=== PATIENT | female | born 1985 | race American Indian/Alaskan Native ===

== ENCOUNTER 2016-12-25 12:41 | Emergency (ER) | payer OTHER ==
[~2016-12-25] VITALS: Ht 172.7 cm; Wt 86.2 kg
[~2016-12-25 12:41] MED LIST: ABILIFY20 MG ORAL; AMOXICILLIN500 MG ORAL; ATENOLOL50 MG ORAL; ATIVAN1 MG ORAL; BENADRYL25 MG ORAL; CLOZARIL100 MG ORAL; IBUPROFEN600 MG ORAL; KENALOG 0.5% CR15 GM TP; KLONOPIN1 MG ORAL; NEURONTIN100 MG ORAL; NORCO 5-325 TA1 EACH ORAL
[2016-12-25] MEDS ORDERED: GABAPENTIN100 MG ORAL (12:57)
[2016-12-25 13:02] VITALS: BP 108/73
[2016-12-25] MEDS ORDERED: KEFLEX500 MG ORAL (13:15)
--- NOTE | 2016-12-25 13:17 | Emergency Room Report ---
History of Present Illness General Chief Complaint: General Complaint Source: Patient Present Illness HPI 31 yo F hx of psych p/w L nasal redness/boil. states yesterday noticed small bump by L nare, popped it, slight purulent drainage came out. states this am began to scab over. denies fevers or chills, but states since yesterday not feeling well. +smokes however denies snorting any drugs. no epistaxis. denies any abscesses in the past. no DM. Allergies: Coded Allergies: FLUPHENAZINE (Verified Allergy, Unknown, 12/25/16) HALOPERIDOL (Unverified Adverse Reaction, Intermediate, 03/13/14) Patient History Last Menstrual Period: Five days ago Now: No Nursing Documentation-PMH History Of Psychiatric Problem: Yes - Schizophrenia Review of Systems All Other Systems: negative except mentioned in HPI Physical Exam Vital Signs Date Time Temp Pulse Resp B/P Pulse Ox O2 Delivery O2 Flow Rate FiO2 12/25/16 12:47 98.4 84 16 108/73 98 Room Air Sp02 EP Interpretation: normal General Appearance: normal inspection, well appearing, no apparent distress, alert, GCS 15, non-toxic Head: normocephalic, atraumatic Eyes: bilateral eye EOMI, bilateral eye PERRL, bilateral eye normal inspection ENT: normal voice, moist mucus membranes, other - skin adjacent to L nare with slight scabbing, slight redness, no area of fluctuance, no purulent drainage. TTP. redness ~2x2cm only. no nasal FB Neck: normal inspection, full range of motion, supple, no bony tend Respiratory: normal inspection, lungs clear, normal breath sounds, no respiratory distress, no retraction, no wheezing, speaking full sentences, chest symmetrical Cardiovascular #1: normal inspection, regular rate, rhythm, no edema, normal capillary refill Gastrointestinal: normal inspection, non tender, soft, non-distended, no guarding Musculoskeletal: normal inspection, back normal, normal range of motion, non- tender Neurologic: normal inspection, alert, oriented x3, responsive, system integration engineer III-XII nml as tested, motor strength/tone normal, sensory intact, normal gait, speech normal Medical Decision Making Diagnostic Impression: Primary Impression: Cellulitis of external nose ER Course 31 yo F w/ 1 day of redness by L nare cellulitis no abscess palpated/visualized keflex, pmd fu, pt has appt on jan 01. strict return prec discussed. Last Vital Signs Date Time Temp Pulse Resp B/P Pulse Ox O2 Delivery O2 Flow Rate FiO2 12/25/16 13:02 98.4 75 16 108/73 98 Room Air Disposition: HOME, SELF-CARE Condition: Improved Scripts Cephalexin* (KEFLEX*) 500 Mg Capsule 500 MG ORAL Q6H for 7 Days, #28 CAP 0 Refills Prov: Francisco Barragan M.D. 12/25/16 Patient Instructions: Cellulitis Francisco Barragan M.D. Dec 25, 2016 13:17
[2016-12-25] MEDS ORDERED: IBUPROFEN600 MG ORAL (13:25)
[2016-12-25 13:26] VITALS: BP 108/73
== END 2016-12-25 13:34 | disposition home or self-care (01) ==
LOC: EMR 13:16
DX: J34.0 Abscess, furuncle and carbuncle of nose (principal)
CPT/HCPCS: 99283

== ENCOUNTER 2017-03-02 18:41 | Emergency (ER) | payer MEDICAID, OTHER ==
[~2017-03-02] VITALS: Ht 172.7 cm; Wt 89.8 kg
[~2017-03-02 18:41] MED LIST changes: +GABAPENTIN100 MG ORAL; +KEFLEX500 MG ORAL
[2017-03-02 19:02] VITALS: BP 106/68
[2017-03-02] MEDS ORDERED: AMOXICILLIN500 MG ORAL (19:27)
--- NOTE | 2017-03-02 19:28 | Emergency Room Report ---
History of Present Illness General Chief Complaint: Earache Source: Patient Present Illness HPI Patient is a 32 -year-old female presents with complaints of right ear pain that began 3 days ago. She states the pain is 7/10 in severity and she hasn't taken her medication for it. She denies any fever, chills, cough, runny or associated symptoms. She denies changes in hearing. Allergies: Coded Allergies: FLUPHENAZINE (Verified Allergy, Unknown, 12/25/16) HALOPERIDOL (Unverified Adverse Reaction, Intermediate, 03/13/14) Patient History Last Menstrual Period: 01/2017 Reviewed Nursing Documentation: PMH: Agreed, PSxH: Agreed Nursing Documentation-PMH Past Medical History: No History, Except For History Of Psychiatric Problem: Yes - Schizophrenia Review of Systems ENT: Reports: ear pain - right All Other Systems: negative except mentioned in HPI Physical Exam Vital Signs Date Time Temp Pulse Resp B/P (MAP) Pulse Ox O2 Delivery O2 Flow Rate FiO2 03/02/17 18:51 98.8 89 16 106/68 97 Room Air Sp02 EP Interpretation: reviewed, normal General Appearance: no apparent distress, alert, GCS 15, non-toxic Head: normocephalic, atraumatic Eyes: bilateral eye normal inspection, bilateral eye PERRL ENT: hearing grossly normal, normal pharynx, no angioedema, normal voice, other - right TM is erythematous and bulging, no TTP over the mastoid process bilaterally Neck: full range of motion, supple/symm/no masses Respiratory: chest non-tender, lungs clear, normal breath sounds, speaking full sentences Cardiovascular #1: regular rate, rhythm, no edema Cardiovascular #2: 2+ carotid (R), 2+ carotid (L), 2+ radial (R), 2+ radial (L) , 2+ dorsalis pedis (R), 2+ dorsalis pedis (L) Gastrointestinal: normal bowel sounds, non tender, soft, non-distended, no guarding, no rebound Rectal: deferred Genitourinary: normal inspection, no CVA tenderness Musculoskeletal: back normal, gait/station normal, normal range of motion, non- tender, calf tenderness Neurologic: alert, oriented x3, responsive, motor strength/tone normal, sensory intact, speech normal Psychiatric: judgement/insight normal, memory normal, mood/affect normal, no suicidal/homicidal ideation Reflexes: 3+ bicep (R), 3+ bicep (L), 3+ tricep (R), 3+ tricep (L), 3+ knee (R) , 3+ knee (L) Skin: normal color, no rash, warm/dry, well hydrated Lymphatic: no adenopathy Medical Decision Making PA Attestation SUPERVISING PHYSICIAN IS DR. DOMÍNGUEZ Diagnostic Impression: Primary Impression: Otitis media of right ear ER Course Findings consistent with otitis media of the right ear.patient is discharged home with amoxicillin. Pt is educated on symptomatic relief. Last Vital Signs Date Time Temp Pulse Resp B/P (MAP) Pulse Ox O2 Delivery O2 Flow Rate FiO2 03/02/17 19:02 98.8 16 106/68 97 Room Air 03/02/17 18:51 89 Status: improved Disposition: HOME, SELF-CARE Condition: Stable Scripts Amoxicillin* (AMOXIL*) 500 Mg Capsule 500 MG ORAL EVERY 8 HOURS for 10 Days, #40 CAP Prov: Stacey Duong 03/02/17 Patient Instructions: Otitis Media, Adult, [id number] Stacey Duong Mar 02, 2017 19:28
[2017-03-02 19:32] VITALS: BP 106/68
== END 2017-03-02 19:32 | disposition home or self-care (01) ==
LOC: EMR 19:06
DX: H66.91 Otitis media, unspecified, right ear (principal); F20.9 Schizophrenia, unspecified; Z88.8 Allergy status to other drugs, medicaments and biological substances
CPT/HCPCS: 99283

== ENCOUNTER 2017-09-20 13:45 | Emergency (ER) | payer MEDICAID ==
[~2017-09-20] VITALS: Ht 172.7 cm; Wt 81.6 kg
[2017-09-20 14:05] VITALS: BP 106/73
--- NOTE | 2017-09-20 14:13 | Emergency Room Report ---
History of Present Illness General Chief Complaint: Upper Respiratory Illness Source: Patient Present Illness [facility] 32-year-old female patient presents to ER complaining of cough 3 days. Patient reports that she has had green sputum in her cough. Patient denies history of asthma. Patient denies history of cardiovascular disease, PE, DVT. Patient reports no chest pain or shortness of breath during this time. Patient reports no fever. Patient also complains of sore throat during this time. Patient denies vomiting. Patient reports history of schizophrenia, states that she takes Klonopin. Patient denies suicidal or homicidal ideation. denies hemoptysis. Allergies: Coded Allergies: FLUPHENAZINE (Verified Allergy, Unknown, 12/25/16) HALOPERIDOL (Unverified Adverse Reaction, Intermediate, 03/13/14) Patient History Past Medical History: see triage record Last Menstrual Period: 09/04 Reviewed Nursing Documentation: PMH: Agreed; PSxH: Agreed Nursing Documentation-PM Past Medical History: No History, Except For History Of Psychiatric Problem: Yes - Schizophrenia Review of Systems All Other Systems: negative except mentioned in HPI Physical Exam Vital Signs Date Time Temp Pulse Resp B/P (MAP) Pulse Ox O2 Delivery O2 Flow Rate FiO2 09/20/17 13:58 98.2 92 16 106/73 95 Room Air 98.2 Sp02 EP Interpretation: reviewed, normal General Appearance: well appearing, no apparent distress, alert, GCS 15, non- toxic Head: normocephalic, atraumatic Eyes: bilateral eye normal inspection, bilateral eye PERRL ENT: hearing grossly normal, normal pharynx, no angioedema, normal voice, TMs + canals normal, uvula midline, moist mucus membranes, other - No tonsillar swelling, no tonsillar exudate, no pharyngeal erythema Neck: full range of motion Respiratory: lungs clear, normal breath sounds, no rhonchi, no respiratory distress, no accessory muscle use, no wheezing, speaking full sentences Cardiovascular #1: regular rate, rhythm, no edema Musculoskeletal: back normal, digits/nails normal, gait/station normal, normal range of motion, non-tender, no calf tenderness, Jaki's Sign negative Neurologic: alert, oriented x3, responsive, motor strength/tone normal, sensory intact Psychiatric: mood/affect normal Skin: no rash Lymphatic: no adenopathy Medical Decision Making PA Attestation Dr. Blanchard is my supervising Physician whom patient management has been discussed with. Diagnostic Impression: Primary Impression: Cough ER Course Pt presents to ED c/o cough. DDX considered but are not limited to influenza, viral URI, pneumonia, strep throat, rhinitis, sinusitis, otitis media. Low suspicion for PE per Well's criteria. Low suspicion for pneumonia, will order CXR to rule out underlying pathology. VITAL SIGNS are WNL, patient is afebrile Ordered CXR and viscous lidocaine. ER COURSE: PE Lungs clear to auscultation, no wheezes, rhonci or rales. No tonsillar exudates, no pharyngeal erythema, no uvular deviation, no stridor, no trismus. Low suspicion for peritonsillar abscess. Informed patient sore throat likely secondary to cough. Patient states "do not want to wait for x-ray". Patient eloped. - Please note that this Emergency Department Report was dictated using [employer] artist technology software, occasionally this can lead to erroneous entry secondary to interpretation by the dictation equipment. Last Vital Signs Date Time Temp Pulse Resp B/P (MAP) Pulse Ox O2 Delivery O2 Flow Rate FiO2 09/20/17 13:58 98.2 92 16 106/73 95 Room Air 98.2 Disposition: ELOPED Condition: Stable Patient Instructions: Upper Respiratory Infection, Adult Additional Instructions: Followup with primary care provider in 3 -5 days. Take medications as directed. Patient questions asked and answered. ER precautions given, patient instructed to return to ER immediately for any new or worsening of symptoms. Thanh Shaw September 20, 2017 14:13
[2017-09-20] MEDS ORDERED: Acetaminophen 500mg (ES) tab ORAL ONE (14:15)
[2017-09-20] MEDS ORDERED: Lidocaine 2% Visc 15ml soln ORAL ONE (14:15)
[2017-09-20 14:38] VITALS: BP 106/73
== END 2017-09-20 14:40 | disposition left against medical advice (07) ==
LOC: EMR 14:39
DX: R05 Cough (principal); F20.9 Schizophrenia, unspecified; Z88.8 Allergy status to other drugs, medicaments and biological substances
CPT/HCPCS: 99283

== ENCOUNTER 2017-11-18 19:18 | Emergency (ER) | payer MEDICAID ==
[~2017-11-18] VITALS: Ht 172.7 cm; Wt 90.7 kg
[2017-11-18] MEDS ORDERED: BETAMETHASONE D15 GM TP (19:42)
[2017-11-18] MEDS ORDERED: KLONOPIN1 MG ORAL (19:42)
--- NOTE | 2017-11-18 20:39 | Emergency Room Report ---
History of Present Illness General Chief Complaint: Skin Rash/Abscess Source: Patient Present Illness HPI 32yo F with h/o psoriasis, schizophrenia, anxiety/depression p/w b/l foot redness, L >R, with swelling as well. She feels the L is getting worse, but denies calf swelling or pain, cough, hemoptysis, recent travel, ocp use. Allergies: Coded Allergies: FLUPHENAZINE (Verified Allergy, Unknown, 11/18/17) HALOPERIDOL (Unverified Adverse Reaction, Intermediate, 11/18/17) Patient History Past Medical History: see triage record Last Menstrual Period: 10/2017 Now: No Reviewed Nursing Documentation: PMH: Agreed; PSxH: Agreed Nursing Documentation-PMH History Of Psychiatric Problem: Yes - paranoid sharri, depression, anxiety Review of Systems All Other Systems: negative except mentioned in HPI Physical Exam Vital Signs Date Time Temp Pulse Resp B/P (MAP) Pulse Ox O2 Delivery O2 Flow Rate FiO2 11/18/17 19:33 98.6 101 16 119/76 96 Room Air 98.6 Sp02 EP Interpretation: reviewed, normal General Appearance: no apparent distress, alert, non-toxic Head: normocephalic Eyes: bilateral eye normal inspection, bilateral eye PERRL, bilateral eye EOMI ENT: normal ENT inspection, hearing grossly normal, normal pharynx, no angioedema, normal voice, moist mucus membranes Neck: normal inspection, full range of motion, supple, supple/symm/no masses Respiratory: chest non-tender, lungs clear, normal breath sounds, chest symmetrical, palpation of chest normal Cardiovascular #1: normal peripheral pulses, regular rate, rhythm Cardiovascular #2: 2+ radial (R), 2+ radial (L), 2+ dorsalis pedis (R), 2+ dorsalis pedis (L) Gastrointestinal: normal inspection, non tender, soft, no mass, no guarding, no rebound Rectal: deferred Genitourinary: normal inspection, no CVA tenderness Musculoskeletal: back normal, gait/station normal, normal range of motion, non- tender, no calf tenderness, Jaki's Sign negative Neurologic: alert, responsive, inshore undersea warfare officer III-XII nml as tested, motor strength/tone normal, sensory intact, speech normal Psychiatric: judgement/insight normal, memory normal, mood/affect normal, no suicidal/homicidal ideation, anxious Skin: normal color, warm/dry, normal turgor, rash - patchy, shiny plaques on B/ L LE, most prominent in one large patch L foot dorsum ~8cm x 8cm circular patch with mild erythema and localized edema Lymphatic: no adenopathy Medical Decision Making Diagnostic Impression: Primary Impression: Cellulitis ER Course patient with psoriatic patch with possible secondary bacterial superinfection causing cellulitis of the L foot dorsum. Do not suspect dvt. Will dc with keflex. Patient with redness and swelling, but only minimal to no pain. Last Vital Signs Date Time Temp Pulse Resp B/P (MAP) Pulse Ox O2 Delivery O2 Flow Rate FiO2 11/18/17 19:33 98.6 101 16 119/76 96 Room Air 98.6 Disposition: HOME, SELF-CARE Condition: Stable Referrals: [facility],REFERRING (PCP) TALHA MARTINEZ M.D Nov 18, 2017 20:39
[2017-11-18 20:41] LABS: BASOPHILS % (AUTO) 0.9 % (0.0-2.0); HEMATOCRIT 37.6 % (37.0-47.0); HEMOGLOBIN 12.8 G/DL (12.0-16.0); LYMPHOCYTES % (AUTO) 28.7 % (20.0-45.0); MEAN CORPUSCULAR VOLUME 87 FL (80-99); MONOCYTES % (AUTO) 6.7 % (1.0-10.0); NEUTROPHILS % (AUTO) 63.7 % (45.0-75.0); PLATELET COUNT 213 K/UL (150-450); RED BLOOD COUNT 4.32 M/UL (4.20-5.40); RED CELL DISTRIBUTION WIDTH 11.8 % (11.6-14.8); WHITE BLOOD COUNT 8.6 K/UL (4.8-10.8)
[2017-11-18 20:49] LABS: ANION GAP 9 mmol/L (5-15); BLOOD UREA NITROGEN 9 mg/dL (7-18); CALCIUM 9.3 MG/DL (8.5-10.1); CARBON DIOXIDE 27 MMOL/L (21-32); CHLORIDE 105 MMOL/L (98-107); CREATININE 0.9 MG/DL (0.55-1.30); POTASSIUM 4.1 MMOL/L (3.5-5.1); SODIUM 140 MMOL/L (136-145)
[2017-11-18] MEDS ORDERED: CEPHALEXIN500 MG ORAL (21:17)
[2017-11-18] MEDS ORDERED: AMOXICILLIN500 MG ORAL (21:25)
[2017-11-18 21:26] VITALS: BP 118/84
[2017-11-18 21:29] VITALS: BP 118/84
== END 2017-11-18 21:29 | disposition home or self-care (01) ==
LOC: EMR 20:23
DX: L03.116 Cellulitis of left lower limb (principal); L03.115 Cellulitis of right lower limb; Z88.8 Allergy status to other drugs, medicaments and biological substances
CPT/HCPCS: 36415; 80048; 85025; 99282

== ENCOUNTER 2018-11-15 09:18 | Emergency (ER) | payer MEDICAID ==
[~2018-11-15] VITALS: Ht 172.7 cm; Wt 95.3 kg
[~2018-11-15 09:18] MED LIST changes: +BETAMETHASONE D15 GM TP; +CEPHALEXIN500 MG ORAL
--- NOTE | 2018-11-15 09:25 | NUR ---
ED Nurse Note: Patient walked into ED c/o coughing, congestion, producing brown phlegm for 1 week. patient is alert awake x4 ambulatory.
[2018-11-15 09:41] VITALS: BP 110/81
[2018-11-15] MEDS ORDERED: Albuterol ud Inhalation HHN ONE (09:45)
[2018-11-15] MEDS ORDERED: Ipratropium 0.02% Inh Soln 2.5ml UD HHN ONE (09:45)
--- NOTE | 2018-11-15 09:55 | Emergency Room Report ---
History of Present Illness General Chief Complaint: Upper Respiratory Illness Source: Patient, Medical Record Present Illness HPI Patient presents with complaints of 7 days of cough and congestion Brown phlegm production Patient does have a history of smoking denies any headache denies any chest pain she does Complain of low-grade subjective fevers denies any rash denies any recent travel Denies any vomiting or diarrhea Allergies: Coded Allergies: CEPHALEXIN (Verified Allergy, Unknown, 11/15/18) FLUPHENAZINE (Verified Allergy, Unknown, 11/18/17) HALOPERIDOL (Unverified Adverse Reaction, Intermediate, 11/18/17) Patient History Past Medical History: see triage record Pertinent Family History: none Last Menstrual Period: 10/21/18 Now: No Reviewed Nursing Documentation: PMH: Agreed; PSxH: Agreed Nursing Documentation-PMH Past Medical History: No History, Except For Review of Systems All Other Systems: negative except mentioned in HPI Physical Exam Vital Signs Date Time Temp Pulse Resp B/P (MAP) Pulse Ox O2 Delivery O2 Flow Rate FiO2 11/15/18 09:22 97.9 82 18 105/71 (82) 96 Room Air 11/15/18 09:45 36 Sp02 EP Interpretation: reviewed, normal General Appearance: well appearing, no apparent distress Head: normocephalic, atraumatic Eyes: bilateral eye PERRL, bilateral eye EOMI ENT: hearing grossly normal, normal pharynx, TMs + canals normal, uvula midline Neck: full range of motion, supple, no meningismus, no bony tend Respiratory: lungs clear, normal breath sounds, no rhonchi, no respiratory distress, no retraction, no accessory muscle use Cardiovascular #1: normal peripheral pulses, regular rate, rhythm, no edema, no gallop, no JVD, no murmur Gastrointestinal: normal bowel sounds, non tender, soft, no mass, no organomegaly, non-distended, no guarding, no hernia, no pulsatile mass, no rebound Genitourinary: no CVA tenderness Musculoskeletal: normal inspection Neurologic: oriented x3, responsive, concrete curer III-XII nml as tested, motor strength/ tone normal, sensory intact Psychiatric: mood/affect normal Lymphatic: normal inspection, no adenopathy Medical Decision Making Diagnostic Impression: Primary Impression: Pneumonia ER Course Given the patient's history and presentation multiple differentials and consideration Including but not limited to bronchitis, URI, pneumonia given the patient's history of smoking x-ray imaging was obtained There are increased markings in the right lower lobe And the patient is placed on oral antibiotics Oxygenation remains appropriate patient does not appear in any respiratory distress And is appropriate candidate for initial conservative outpatient trial Chest X-Ray Diagnostic Results Chest X-Ray Diagnostic Results : Chest X-Ray Ordered: Yes # of Views/Limited/Complete: 1 View Indication: Shortness of Breath EP Interpretation: Yes Interpretation: no effusion, no pneumothorax, other - Increased markings right lower lobe consider infiltrate Impression: Other - Right lower lobe early infiltrate Electronically Signed by: Hernandez Blanchard DO Last Vital Signs Date Time Temp Pulse Resp B/P (MAP) Pulse Ox O2 Delivery O2 Flow Rate FiO2 11/15/18 09:51 86 18 98 Room Air 21 11/15/18 09:41 97.9 110/81 Status: improved Disposition: HOME, SELF-CARE Condition: Improved Scripts Albuterol Sulfate* (ALBUTEROL SULFATE MDI*) 8.5 Gm Hfa.aer.ad 2 PUFF INH Q6H, #1 EA 0 Refills Prov: Hernandez Blanchard DO 11/15/18 Promethazine Hcl (PROMETHAZINE HCL*) 6.25 Mg/5 Ml Syrup 5 ML ORAL Q12HR for 7 Days, #120 ML 0 Refills Prov: Hernandez Blanchard DO 11/15/18 Levofloxacin* (LEVAQUIN*) 750 Mg Tablet 750 MG ORAL DAILY for 6 Days, TAB Prov: Hernandez Blanchard DO 11/15/18 [facility]ERR[facility] (PCP) Additional Instructions: Patient is provided with the discharge instructions notified to follow up with primary doctor in the next 2-3 days otherwise return to the er with any worsening symptoms. Please note that this report is being documented using [employer] technology. This can lead to erroneous entry secondary to incorrect interpretation by the dictating instrument. Hernandez Blanchard DO Nov 15, 2018 09:55
[2018-11-15] MEDS ORDERED: Levofloxacin 750mg tab ORAL ONE (10:30)
--- NOTE | 2018-11-15 10:30 | Diagnostic Imaging Report ---
EXAM: XR Chest, 1 View CLINICAL HISTORY: COUGH TECHNIQUE: Frontal view of the chest. COMPARISON: Chest radiograph on 02/04/2008 FINDINGS: Hardware: None. Lungs/pleura: Mildly low lung volumes with mild bibasilar atelectasis. No focal consolidation. No pleural effusion or pneumothorax. Heart/mediastinum: Normal. No cardiomegaly. Soft tissues: Unremarkable. Bones: No acute fracture. Upper abdomen: Normal. IMPRESSION: No acute disease identified.
[2018-11-15] MEDS ORDERED: ALBUTEROL SULF8.5 GM INH (10:40)
[2018-11-15] MEDS ORDERED: LEVAQUIN750 MG ORAL (10:40)
[2018-11-15] MEDS ORDERED: PROMETHAZI6.25 MG/1 ORAL (10:40)
[2018-11-15 10:50] VITALS: BP 118/78
[2018-11-15 11:12] VITALS: BP 118/78
--- NOTE | 2018-11-15 11:13 | NUR ---
ER DISCHARGE NOTE: Patient is cleared to be discharged per LASHELL QURESHI, pt is aox4, on room air, with stable vital signs. pt was given dc and prescription instructions, pt was able to verbalize understanding, pt id band removed without complications. pt is able to ambulate with steady gait. pt took all belongings.
== END 2018-11-15 11:12 | disposition home or self-care (01) ==
LOC: EMR 09:43
DX: J18.9 Pneumonia, unspecified organism (principal); Z88.8 Allergy status to other drugs, medicaments and biological substances
CPT/HCPCS: 71045; 94640; 94664; 99284

== ENCOUNTER 2019-01-04 11:55 | Emergency (ER) | payer MEDICAID ==
[~2019-01-04] VITALS: Ht 172.7 cm; Wt 99.8 kg
[~2019-01-04 11:55] MED LIST changes: +ALBUTEROL SULF8.5 GM INH; +LEVAQUIN750 MG ORAL; +PROMETHAZI6.25 MG/1 ORAL
[2019-01-04 12:14] VITALS: BP 117/81
[2019-01-04] MEDS ORDERED: CLOZAPINE200 MG PO (12:22)
[2019-01-04] MEDS ORDERED: BENADRYL25 MG ORAL (12:24)
[2019-01-04] MEDS ORDERED: KLONOPIN1 MG ORAL (12:24)
[2019-01-04] MEDS ORDERED: ATENOLOL100 MG ORAL (12:24)
[2019-01-04] MEDS ORDERED: GABAPENTIN800 MG ORAL (12:24)
--- NOTE | 2019-01-04 12:31 | NUR ---
ED Nurse Note: PT. aaoX4. Ambulatory. walked in due to allergic reaction such as rash, hives, weakness, sweating. pt reported symptoms started when she started taking Cymbalta. she didn't take it today.
[2019-01-04] MEDS ORDERED: CETIRIZINE HCL10 MG PO (12:39)
[2019-01-04 12:45] VITALS: BP 117/81
--- NOTE | 2019-01-04 12:45 | NUR ---
ER DISCHARGE NOTE: Patient is cleared to be discharged per PA, pt is aox4, on room air, with stable vital signs. pt was given dc and prescription instructions, pt was able to verbalize understanding, pt id band removed. pt is able to ambulate with steady gait. pt took all belongings.
--- NOTE | 2019-01-04 13:03 | Emergency Room Report ---
History of Present Illness General Chief Complaint: Skin Rash/Abscess Source: Patient Present Illness HPI 33-year-old female complaining of itchy rash on chest x3 days, improving. Denies fever, shortness of breath, lip/tongue swelling, throat tightness. Started a new prescription of Cymbalta 6 days ago. Denies new foods, soaps, lotion, detergent, exposure to plants or animals. Patient states she has h/o allergies to antidepressants. Denies SI or HI. Allergies: Coded Allergies: CEPHALEXIN (Verified Allergy, Unknown, 11/15/18) FLUPHENAZINE (Verified Allergy, Unknown, 11/18/17) HALOPERIDOL (Unverified Adverse Reaction, Intermediate, 11/18/17) Patient History Past Medical History: psych hx, other - fibromyalgia endometriosis Past Surgical History: none Social History: Reports: smoking - 1 pack per day; Denies: alcohol use, drug use Last Menstrual Period: 12/27/18 Now: No : 0 Para: 0 Nursing Documentation-[facility] Past Medical History: No History, Except For Hx Cardiac Problems: No - HLD History Of Psychiatric Problem: Yes - Schizophrenia, anxiety, depression Review of Systems Allergic: Reports: urticaria All Other Systems: negative except mentioned in HPI Physical Exam Vital Signs Date Time Temp Pulse Resp B/P (MAP) Pulse Ox O2 Delivery O2 Flow Rate FiO2 01/04/19 12:14 98.6 96 17 117/81 94 Room Air Sp02 EP Interpretation: reviewed General Appearance: well appearing, no apparent distress, alert, GCS 15, non- toxic ENT: hearing grossly normal, normal pharynx, no angioedema, normal voice Respiratory: chest non-tender, lungs clear, normal breath sounds, no respiratory distress, no retraction, no accessory muscle use, no wheezing, speaking full sentences Cardiovascular #1: regular rate, rhythm, no edema Psychiatric: normal inspection, mood/affect normal Skin: no rash, normal color Medical Decision Making PA Attestation This patient was seen under the direct supervision of Dr. Blanchard, who directed all aspects of care and diagnostic interpretation. Diagnostic Impression: Primary Impression: Rash ER Course ED course HPI: 33-year-old female complaining of itchy rash to the chest x3 days, improving. Denies shortness of breath, fever, lip or tongue swelling, throat tightness. Patient is well-appearing, nontoxic in appearance. Speaking in full sentences without respiratory distress. Oxygen saturation 94% on room air, patient smokes 1 pack of cigarettes per day. No signs and symptoms of anaphylaxis at this time. Ddx: dermatitis versus allergic reaction versus urticaria HPI & PE consistent with: Rash, improving Orders/ Interventions: None Disposition: Patient Stable for discharge home. Prescription for cetirizine given. Smoking cessation discussed and strongly advised. Increase oral hydration. Advised bland diet. Follow-up with PCP/psychiatrist in 1-2 days for possible referral to printed circuit boards stripper etcher. Return to ED if worsening symptoms, new symptoms or sudden change in condition. Please note that this Emergency Department Report was dictated using [employer]combat systems operator mine warfare technology software, occasionally this can lead to erroneous entry secondary to interpretation by the dictation equipment. Last Vital Signs Date Time Temp Pulse Resp B/P (MAP) Pulse Ox O2 Delivery O2 Flow Rate FiO2 01/04/19 12:45 98.6 96 17 117/81 94 Room Air Status: unchanged Disposition: HOME, SELF-CARE Condition: Stable Scripts Cetirizine Hcl (CETIRIZINE HCL) 10 Mg Tablet 10 MG PO DAILY for 7 Days, #7 TAB Prov: Maya Haider 01/04/19 Patient Instructions: Rash, [id number] Additional Instructions: Prescription for cetirizine given. Increase oral hydration. Advised bland diet. Follow-up with PCP/psychiatrist in 1 to 2 days or return to ED if worsening symptoms, new symptoms or sudden change in condition. Maya Haider Jan 04, 2019 13:03
== END 2019-01-04 12:45 | disposition home or self-care (01) ==
LOC: EMR 12:32
DX: R21 Rash and other nonspecific skin eruption (principal); Z88.8 Allergy status to other drugs, medicaments and biological substances; F17.210 Nicotine dependence, cigarettes, uncomplicated; M79.10 Myalgia, unspecified site; F20.9 Schizophrenia, unspecified; F41.9 Anxiety disorder, unspecified; F32.9 Major depressive disorder, single episode, unspecified
CPT/HCPCS: 99282

== ENCOUNTER 2019-03-20 17:50 | Emergency (ER) | payer MEDICAID ==
[~2019-03-20] VITALS: Ht 172.7 cm; Wt 90.7 kg
[~2019-03-20 17:50] MED LIST changes: +ATENOLOL100 MG ORAL; +CETIRIZINE HCL10 MG PO; +CLOZAPINE200 MG PO; +GABAPENTIN800 MG ORAL
[2019-03-20 17:54] VITALS: BP 128/79
--- NOTE | 2019-03-20 17:54 | NUR ---
ED Nurse Note: pt brought by [facility]61 from home due to feeling anxious since this morning. pt crying and appears to be agitated. labored breathing noted. maintained >94% of pulse oximetry in RA. per pt, stopped taking effexor for 3 days due to rashes and sore throat. she was on this meds for last one month. per pt, "maybe withdraw sx." AAO x4. denies SI/HI. cooperative with staff. RN instructed pt to change to hospital gown. no hearing voices or seeing things. will wait for the further order.
--- NOTE | 2019-03-20 18:00 | NUR ---
ED Nurse Note: [employer] at the bed side.
[2019-03-20] MEDS ORDERED: LORazepam Inj 2mg/ml 1ml IM ONE (18:15)
--- NOTE | 2019-03-20 18:23 | NUR ---
ED Nurse Note: rashes on bothe upper legs and abdominal. pt c/o itchness.
--- NOTE | 2019-03-20 18:57 | NUR ---
ED Nurse Note: friend "August" at the bed side.
--- NOTE | 2019-03-20 19:03 | NUR ---
HAND-OFF: Report given to MAGGI Gregorio.
--- NOTE | 2019-03-20 19:11 | Emergency Room Report ---
History of Present Illness General Chief Complaint: Behavioral Complaint Source: Medical Record Present Illness HPI 34-year-old female presents to the emergency department complaining of anxiety attack in addition to progressive rash status post discontinuing Effexor 4 days ago. Patient reports that she was instructed by her psychiatrist to go to the ER to be evaluated for Christian Marcus's. Patient states that she has been having a sore throat and hot flashes. Patient states that usually her anxiety is well controlled with her prescribed Klonopin 3 times a day she states it is very out of the ordinary for her to be having an actual panic attack and when she does they typically only last 30 minutes. Patient is reporting that this panic attack has been lasting all day since this morning. She denies fevers or chills. She denies blisters she reports the rash is itchy she denies recent travel or ill contacts. She denies oral sores. She also states that she already took all her doses of Klonopin today and they did not provide any relief. She reports shakiness, episode of hyper-ventillating and feeling of impending doom. she reports generalized body aches 3/10 in severity. She denies SI/HI/auditory or visual hallucinations, manic episodes, lapses in consciousness, or illicit drug use. Denies CP, Palpitations, LOC, AMS, dizziness, Changes in Vision,/Sensation, paresthesias, or a sudden severe headache. Allergies: Coded Allergies: CEPHALEXIN (Verified Allergy, Unknown, 11/15/18) FLUPHENAZINE (Verified Allergy, Unknown, 11/18/17) HALOPERIDOL (Unverified Adverse Reaction, Intermediate, 11/18/17) Patient History Past Medical History: see triage record, psych hx Past Surgical History: none Pertinent Family History: none Now: No Reviewed Nursing Documentation: PMH: Agreed; PSxH: Agreed Nursing Documentation-PMH Past Medical History: No History, Except For Hx Cardiac Problems: No - HLD History Of Psychiatric Problem: Yes - depression Review of Systems All Other Systems: negative except mentioned in HPI Physical Exam Vital Signs Date Time Temp Pulse Resp B/P (MAP) Pulse Ox O2 Delivery O2 Flow Rate FiO2 03/20/19 17:45 98.1 80 22 128/79 (95) 99 Room Air Sp02 EP Interpretation: reviewed, normal General Appearance: no apparent distress, alert, GCS 15, non-toxic, mild distress - anxiousness, restlessness Head: normocephalic, atraumatic Eyes: bilateral eye normal inspection, bilateral eye PERRL ENT: hearing grossly normal, normal pharynx, no angioedema, normal voice, uvula midline, moist mucus membranes, tonsillar swelling, pharyngeal erythema, other - no oral lesions, mild erythema of the posterior pharynx. Neck: full range of motion Respiratory: chest non-tender, lungs clear, normal breath sounds, no rhonchi, no respiratory distress, no accessory muscle use, no wheezing, speaking full sentences Cardiovascular #1: regular rate, rhythm, no edema Gastrointestinal: non tender, soft Musculoskeletal: back normal, gait/station normal, normal range of motion, non- tender Neurologic: alert, oriented x3, responsive, motor strength/tone normal, sensory intact, normal gait, speech normal, grossly normal Psychiatric: judgement/insight normal, anxious - and restless Skin: rash - maculopapular rash of the RLE, and spot appearance on the lateral left breast. Negative niklosky signs. No blisters, vesicles or sloughing of the skin. No significant surrounding erythema or warmth. No oral mucosal involvement, warm/dry, Ecchymosis/Bruising - right A/c are- pt. just had recent venipuncture. , well hydrated Lymphatic: no adenopathy Medical Decision Making PA Attestation Dr. Perez is my supervising Physician whom patient management has been discussed with. Diagnostic Impression: Primary Impression: RASH AND OTHER NONSPECIFIC SKIN ERUPTION Additional Impression: Anxious reaction ER Course 34-year-old female presents to the emergency department complaining of anxiety attack in addition to progressive rash status post discontinuing Effexor 4 days ago. Patient reports that she was instructed by her psychiatrist to go to the ER to be evaluated for Christian Marcus's. Patient states that she has been having a sore throat and hot flashes. Patient states that usually her anxiety is well controlled with her prescribed Klonopin 3 times a day she states it is very out of the ordinary for her to be having an actual panic attack and when she does they typically only last 30 minutes. Patient is reporting that this panic attack has been lasting all day since this morning. She denies fevers or chills. She denies blisters she reports the rash is itchy she denies recent travel or ill contacts. She denies oral sores. She also states that she already took all her doses of Klonopin today and they did not provide any relief. She reports shakiness, episode of hyper-ventillating and feeling of impending doom. she reports generalized body aches 3/10 in severity. She denies SI/HI/auditory or visual hallucinations, manic episodes, lapses in consciousness, or illicit drug use. Denies CP, Palpitations, LOC, AMS, dizziness, Changes in Vision,/Sensation, paresthesias, or a sudden severe headache. Ddx considered but are not limited to cellulitis, scabies, shingles, varicella, dermatitis, urticaria, eczema, tinea, viral exanthem, SJS, anxiety attack, drug w/d symptoms, or acute psychosis just to name a few. Vital signs: are WNL, pt. is afebrile H&PE are most consistent with progressive maculopapular rash of the RLE, and spot appearance on the lateral left breast. Negative niklosky signs. No blisters, vesicles or sloughing of the skin. No significant surrounding erythema or warmth. No oral mucosal involvement. ORDERS: none required at this time, the diagnosis is clinical ED INTERVENTIONS: -Ativan 2mg IM -Benadryl PO 25mg --- Upon reevaluation patient reports that her symptoms have subsided. Patient is requesting discharge to home with her friend who is bedside. -I do not identify an emergent condition at this time. With current presentation , pt. is stable for close outpatient follow up and conservative treatment. D/ w pt. to return promptly to ED with worsening or new symptoms.- Pt. verbalizes' understanding and agreement with proposed treatment plan. DISCHARGE: At this time pt. is stable for d/c to home. Will provide printed patient care instructions, and any necessary prescriptions. Care plan and follow up instructions have been discussed with the patient prior to discharge. Last Vital Signs Date Time Temp Pulse Resp B/P (MAP) Pulse Ox O2 Delivery O2 Flow Rate FiO2 03/20/19 17:54 80 22 Room Air 03/20/19 17:54 98.1 128/79 99 Status: improved Disposition: HOME, SELF-CARE Condition: Stable Physician Consult: infectious disease/ alkaspoolas Scripts Prednisone* (PREDNISONE*) 20 Mg Tablet 20 MG ORAL DAILY for 2 Days, #2 TAB 0 Refills Prov: Belle Combs 03/20/19 Permethrin* (ELIMITE*) 60 Gm Cream..g. 1 APPLIC TOPIC ONCE, #60 GM 0 Refills Apply cream from head to toe; leave on for 8-14 hours before washing off with water; may reapply in 1 week if live mites appear. Prov: Belle Combs 03/20/19 Hydrocortisone 2% Cream (ANTI-ITCH 2% CREAM) Y Cr 1 APPLIC TP TID, #28 GM Prov: Belle Combs 03/20/19 Diphenhydramine Hcl (BENADRYL ALLERGY) 25 Mg Tablet 25 MG PO Q6HR, #30 TAB Prov: Belle Combs 03/20/19 Referrals: NOT CHOSEN IPA/MD,REFERRING (PCP) Patient Instructions: Drug Rash, Rash, [id number] Additional Instructions: Take medications as directed. Follow up with a Primary Care Provider and your Psychiatrist within 3 days. even if your symptoms have resolved. Return sooner to ED if new symptoms occur, or your current symptoms become worse. Do not drink alcohol, drive, or operate heavy machinery while taking Benadryl as this may cause drowsiness. - Please note that this Emergency Department Report was dictated using [employer] machine tender technology software, occasionally this can lead to erroneous entry secondary to interpretation by the dictation equipment. Belle Combs Mar 20, 2019 19:11
[2019-03-20] MEDS ORDERED: ANTI-ITCH28 G1 TP (20:05)
[2019-03-20] MEDS ORDERED: PREDNISONE20 MG ORAL (20:05)
[2019-03-20] MEDS ORDERED: PERMETHRIN60 GM TOPIC (20:05)
[2019-03-20] MEDS ORDERED: BENADRYL ALLERG25 M1 PO (20:05)
[2019-03-20 20:30] VITALS: BP 128/79
--- NOTE | 2019-03-20 20:30 | NUR ---
ER DISCHARGE NOTE: Patient is cleared to be discharged per ERMD, pt is aox4, on room air, with stable vital signs. pt was given dc and prescription instructions, pt was able to verbalize understanding, pt is able to ambulate with steady gait. pt took all belongings.
== END 2019-03-20 20:30 | disposition home or self-care (01) ==
LOC: EDBD 17:50 → EMR 18:20
DX: F41.9 Anxiety disorder, unspecified (principal); R21 Rash and other nonspecific skin eruption; Z88.1 Allergy status to other antibiotic agents; Z88.8 Allergy status to other drugs, medicaments and biological substances; E78.5 Hyperlipidemia, unspecified; F32.9 Major depressive disorder, single episode, unspecified
CPT/HCPCS: 96372; J7512; Z7502; 99283

== ENCOUNTER 2019-04-11 17:42 | Emergency (ER) | payer MEDICAID, OTHER ==
[~2019-04-11] VITALS: Ht 172.7 cm; Wt 90.7 kg
[~2019-04-11 17:42] MED LIST changes: +ANTI-ITCH28 G1 TP; +BENADRYL ALLERG25 M1 PO; +PERMETHRIN60 GM TOPIC; +PREDNISONE20 MG ORAL
--- NOTE | 2019-04-11 18:00 | NUR ---
ED Nurse Note: pt walked in to ED due to coughing and itchness on both feet. no fever or chills reported. respirations even and non-labored noted.
--- NOTE | 2019-04-11 18:17 | Emergency Room Report ---
History of Present Illness General Chief Complaint: Upper Respiratory Illness Source: Patient (Stew Rosado) Present Illness HPI 34-year-old female with history of depression with psychotic features currently under treatment of psychiatrist, here complaining of 3 days of cough and congestion as well as sore throat. Complains of green phlegm production denying wheezing and chest pain. Denies shortness of breath and palpitation. Has not taken medication for symptom relief. Denies fever and chills, abdominal pain, nausea vomiting. Also complains of return of the same rash that she was here for beginning of March. Patient was diagnosed with scabies and reports that the rash is back. paul like rash noted on bilateral lower extremities with no sign of infection. Patient denies recent travel, or intake of any medication. (Stew Rosado) Allergies: Coded Allergies: CEPHALEXIN (Verified Allergy, Unknown, 11/15/18) FLUPHENAZINE (Verified Allergy, Unknown, 11/18/17) HALOPERIDOL (Unverified Adverse Reaction, Intermediate, 11/18/17) Patient History Past Medical History: see triage record Past Surgical History: unable to obtain Pertinent Family History: none Last Menstrual Period: 03/15/2019 Now: No Immunizations: UTD Reviewed Nursing Documentation: PMH: Agreed; PSxH: Agreed (Stew Rosado) Nursing Documentation-PMH Past Medical History: No History, Except For Hx Cardiac Problems: No Hx Hypertension: No Hx Pacemaker: No Hx Asthma: No Hx COPD: No Hx Diabetes: No Hx Cancer: No Hx Gastrointestinal Problems: No Hx Dialysis: No History Of Psychiatric Problem: Yes - Schizophrenia, Anxiety Hx Neurological Problems: No Hx Cerebrovascular Accident: No Hx Seizures: No (Stew Rosado) Review of Systems All Other Systems: negative except mentioned in HPI (Stew Rosado) Physical Exam Vital Signs Date Time Temp Pulse Resp B/P (MAP) Pulse Ox O2 Delivery O2 Flow Rate FiO2 04/11/19 17:51 98.2 104 18 130/83 (99) 95 Room Air Sp02 EP Interpretation: reviewed, normal General Appearance: no apparent distress, alert, GCS 15, non-toxic Head: normocephalic, atraumatic Eyes: bilateral eye normal inspection, bilateral eye PERRL ENT: hearing grossly normal, EOM grossly intact, no angioedema, normal voice, TMs + canals normal, uvula midline, moist mucus membranes, pharyngeal erythema, tonsillar exudate Neck: full range of motion, supple, thyroid normal, no meningismus, supple/symm /no masses Respiratory: chest non-tender, lungs clear, normal breath sounds, no rhonchi, no retraction, no wheezing, speaking full sentences Cardiovascular #1: regular rate, rhythm, no edema, no murmur, normal capillary refill Cardiovascular #2: 2+ dorsalis pedis (R), 2+ dorsalis pedis (L) Gastrointestinal: non tender, soft Genitourinary: no CVA tenderness Musculoskeletal: back normal, normal range of motion Neurologic: alert, motor strength/tone normal, oriented x3, sensory intact, responsive, speech normal Psychiatric: judgement/insight normal, memory normal, mood/affect normal, no suicidal/homicidal ideation Skin: rash - paul like rash bilateral feet Lymphatic: no adenopathy (Stew Rosado) Medical Decision Making PA Attestation All diagnoses and treatment plans were reviewed and discussed with my supervising physician Dr. Julio (Stew Rosado) Diagnostic Impression: Primary Impression: Strep pharyngitis Additional Impression: Scabies ER Course 34-year-old female with history of depression with psychotic features currently under treatment of psychiatrist, here complaining of 3 days of cough and congestion as well as sore throat. Complains of green phlegm production denying wheezing and chest pain. Denies shortness of breath and palpitation. Has not taken medication for symptom relief. Denies fever and chills, abdominal pain, nausea vomiting. Also complains of return of the same rash that she was here for beginning of March. Patient was diagnosed with scabies and reports that the rash is back. paul like rash noted on bilateral lower extremities with no sign of infection. Patient denies recent travel, or intake of any medication. Ddx considered but are not limited to: strep pharyngitis, URI, tonsillitis, peritonsillar abscess, influenza, scabies, drug reaction rash, anaphylaxis, allergic Urticaria Vital signs: are WNL, pt. is afebrile H&PE are most consistent with:strep pharyngitis, scabies ORDERS: Permethrin, prednisone, guaifenesin, azithromycin ED INTERVENTIONS: None required at this time. DISCHARGE: At this time pt. is stable for d/c to home. Will provide printed patient care instructions, and any necessary prescriptions. Care plan and follow up instructions have been discussed with the patient prior to discharge. Patient to follow-up with her primary care provider for referral to stage hand also wash all bedding and clothing , and if worsening symptoms return to the emergency room (Stew Rosado) Last Vital Signs Date Time Temp Pulse Resp B/P (MAP) Pulse Ox O2 Delivery O2 Flow Rate FiO2 04/11/19 17:51 98.2 104 18 130/83 (99) 95 Room Air (Stew Rosado) Last Vital Signs Date Time Temp Pulse Resp B/P (MAP) Pulse Ox O2 Delivery O2 Flow Rate FiO2 04/11/19 18:34 98.0 87 16 127/78 99 Room Air (Juan Julio MD) Disposition: HOME, SELF-CARE Condition: Stable Scripts Prednisone (Prednisone) 20 Mg Tablet 20 MG PO BID for 5 Days, #10 TAB Prov: Stew Rosado 04/11/19 Permethrin* (ELIMITE*) 60 Gm Cream..g. 1 APPLIC TOPIC ONCE, #60 GM 0 Refills Apply cream from head to toe; leave on for 8-14 hours before washing off with water; may reapply in 1 week if live mites appear. Prov: Stew Rosado 04/11/19 Guaifenesin* (GUAIFENESIN) 100 Mg/5 Ml Liquid 5 ML ORAL Q6H, #120 ML 0 Refills Prov: Stew Rosado 04/11/19 Azithromycin* (ZITHROMAX*) 250 Mg Tablet 250 MG ORAL DAILY, #6 TAB 0 Refills Take two tables once daily for 1 day, then one tablet once daily for 4 days. Prov: Stew Rosado 04/11/19 Patient Instructions: Pharyngitis, [id number], Scabies, Pediatric Additional Instructions: Take medication as directed, follow-up with your primary care provider, if worsening symptoms return to the emergency room Stew Rosado Apr 11, 2019 18:17 Juan Julio MD Apr 12, 2019 02:07
[2019-04-11] MEDS ORDERED: PREDNISONE20 M1 PO (18:19)
[2019-04-11] MEDS ORDERED: GUAIFENESI100 MG/5 M ORAL (18:19)
[2019-04-11] MEDS ORDERED: PERMETHRIN60 GM TOPIC (18:19)
[2019-04-11] MEDS ORDERED: ZITHROMAX250 MG ORAL (18:19)
[2019-04-11 18:34] VITALS: BP 127/78
--- NOTE | 2019-04-11 18:35 | NUR ---
ER DISCHARGE NOTE: Patient is cleared to be discharged per ERMD, pt is aox4, on room air, with stable vital signs. pt was given dc and prescription instructions, pt was able to verbalize understanding, pt id band removed without complications. pt is able to ambulate with steady gait. pt took all belongings.
== END 2019-04-11 18:34 | disposition home or self-care (01) ==
LOC: EMR 18:05
DX: J02.0 Streptococcal pharyngitis (principal); B86 Scabies; Z88.8 Allergy status to other drugs, medicaments and biological substances; F20.9 Schizophrenia, unspecified; F41.9 Anxiety disorder, unspecified
CPT/HCPCS: 99282

== ENCOUNTER 2019-07-23 09:12 | Emergency (ER) | payer MEDICAID ==
[~2019-07-23] VITALS: Ht 172.7 cm; Wt 102.1 kg
[~2019-07-23 09:12] MED LIST changes: +GUAIFENESI100 MG/5 M ORAL; +PREDNISONE20 M1 PO; +ZITHROMAX250 MG ORAL
[2019-07-23 09:25] VITALS: BP 108/66
--- NOTE | 2019-07-23 09:26 | NUR ---
ED Nurse Note:pt. came with c/o abdominal pain nausea, ambulatory, A/Ox4
[2019-07-23] MEDS ORDERED: Omnipaque-300 100ml vial INJ PRN (09:30)
[2019-07-23] MEDS ORDERED: Ketorolac 30mg Inj IV ONE (09:30)
--- NOTE | 2019-07-23 09:54 | NUR ---
ED Nurse Note:blood and urine sent to labs
--- NOTE | 2019-07-23 09:55 | Emergency Room Report ---
History of Present Illness General Chief Complaint: Abdominal Pain Source: Patient Present Illness HPI 34-year-old female history of endometriosis, psychiatric disease, myalgia presented for lower abdominal pain. She states it has been present for the past 48 hours. Approximately 10 out of 10 intermittent nothing makes it better or worse. She denies any nausea vomiting fevers or urinary complaints. He states this is worse than her previous endometriosis episodes. She denies any surgical history. Last menstrual cycle was approximately 3 weeks ago. Allergies: Coded Allergies: CEPHALEXIN (Verified Allergy, Unknown, 11/15/18) FLUPHENAZINE (Verified Allergy, Unknown, 11/18/17) HALOPERIDOL (Unverified Adverse Reaction, Intermediate, 11/18/17) Patient History Past Medical History: see triage record Last Menstrual Period: 07/06/2019 Reviewed Nursing Documentation: PMH: Agreed; PSxH: Agreed Nursing Documentation-PMH Past Medical History: No History, Except For Hx Hypertension: No Hx Pacemaker: No Hx Asthma: No Hx COPD: No Hx Diabetes: No Hx Cancer: No Hx Gastrointestinal Problems: No Hx Dialysis: No Hx Neurological Problems: No Hx Cerebrovascular Accident: No Hx Seizures: No Review of Systems All Other Systems: negative except mentioned in HPI Physical Exam Vital Signs Date Time Temp Pulse Resp B/P (MAP) Pulse Ox O2 Delivery O2 Flow Rate FiO2 07/23/19 09:13 97.9 83 16 108/66 (80) 96 Room Air Sp02 EP Interpretation: reviewed, normal General Appearance: well appearing, no apparent distress Head: normocephalic, atraumatic Eyes: bilateral eye PERRL, bilateral eye EOMI ENT: hearing grossly normal, moist mucus membranes Neck: full range of motion, supple Respiratory: lungs clear, normal breath sounds, no rhonchi, no respiratory distress, no retraction, no wheezing Cardiovascular #1: normal peripheral pulses, regular rate, rhythm, no murmur Gastrointestinal: soft, non-distended, no guarding, other - Bilateral lower quadrant tenderness noted Neurologic: alert, oriented x3, no focal defects Skin: normal color, warm/dry Medical Decision Making Diagnostic Impression: Primary Impression: Abdominal pain Additional Impression: Cyst of left kidney ER Course Differential diagnosis included but not limited to UTI, endometriosis, appendicitis, constipation, diverticulitis to name a few. Patient's vital signs stable on arrival. She was in no acute distress. Pain control given laboratory studies and CT scan were ordered. CT scan showed evidence of a left renal cyst. I did discuss this finding with the patient. Patient also noted to have a small dilated loops of bowel without evidence of obstruction suspected enteritis versus ileus. Patient did complain of constipation for the past week so I did prescribe a stool softener. Patient had no active vomiting. Vital signs were stable. Abdomen nondistended. Low suspicion for bowel obstruction. Patient felt improved after IV fluids and Toradol. Will discharge home with outpatient follow-up and strict return precautions. CT/MRI/US Diagnostic Results CT/MRI/US Diagnostic Results : Imaging Test Ordered: Procedure: CT Abdomen Pelvis w/Contrast Last Vital Signs Date Time Temp Pulse Resp B/P (MAP) Pulse Ox O2 Delivery O2 Flow Rate FiO2 07/23/19 09:25 97.9 83 16 108/66 96 Room Air Status: improved Disposition: HOME, SELF-CARE Condition: Stable Scripts Polyethylene Glycol 3350* (MIRALAX*) 17 Gm Powd.pack 17 GM ORAL DAILY PRN for Constipation, #30 PACKET Prov: Arturo He M.D. 07/23/19 Referrals: NON PHYSICIAN (PCP) Arturo He M.D. Jul 23, 2019 09:55
[2019-07-23 10:00] LABS: BASOPHILS % (AUTO) 0.7 % (0.0-2.0); HEMATOCRIT 39.3 % (37.0-47.0); HEMOGLOBIN 13.4 G/DL (12.0-16.0); LYMPHOCYTES % (AUTO) 19.4 % (20.0-45.0); MEAN CORPUSCULAR VOLUME 85 FL (80-99); MONOCYTES % (AUTO) 5.4 % (1.0-10.0); NEUTROPHILS % (AUTO) 74.4 % (45.0-75.0); PLATELET COUNT 220 K/UL (150-450); RED BLOOD COUNT 4.64 M/UL (4.20-5.40); RED CELL DISTRIBUTION WIDTH 12.8 % (11.6-14.8); WHITE BLOOD COUNT 11.8 K/UL (4.8-10.8)
[2019-07-23 10:06] LABS: APPEARANCE,URINE CLEAR; BILIRUBIN, URINE NEGATIVE (NEGATIVE); COLOR,URINE PALE YELLOW; GLUCOSE, URINE (UA) NEGATIVE (NEGATIVE); KETONES,URINE NEGATIVE (NEGATIVE); LEUKOCYTE ESTERASE ,URINE NEGATIVE (NEGATIVE); NITRITE,URINE NEGATIVE (NEGATIVE); PH,URINE 7 (4.5-8.0); PROTEIN,URINE NEGATIVE (NEGATIVE); UROBILINOGEN,URINE NORMAL MG/DL (0.0-1.0)
[2019-07-23 10:11] LABS: ANION GAP 10 mmol/L (5-15); BLOOD UREA NITROGEN 7 mg/dL (7-18); CALCIUM 8.8 MG/DL (8.5-10.1); CARBON DIOXIDE 22 MMOL/L (21-32); CHLORIDE 108 MMOL/L (98-107); CREATININE 0.7 MG/DL (0.55-1.30); POTASSIUM 4.7 MMOL/L (3.5-5.1); SODIUM 140 MMOL/L (136-145)
[2019-07-23 10:19] LABS: ALANINE AMINOTRANSFERASE 23 U/L (12-78); ALBUMIN 3.4 G/DL (3.4-5.0); ALKALINE PHOSPHATASE 74 U/L (46-116); ASPARTATE AMINO TRANSFERASE 26 U/L (15-37); BILIRUBIN,TOTAL 0.3 MG/DL (0.2-1.0)
--- NOTE | 2019-07-23 10:56 | NUR ---
ED Nurse Note:pt. had ct scan done
--- NOTE | 2019-07-23 11:23 | Diagnostic Imaging Report ---
INDICATION: Abdominal pain TECHNIQUE: Continuous helical transaxial imaging of the abdomen and pelvis was obtained from the lung bases to the pubic symphysis during intravenous contrast administration. Coronal 2-D reformats were also obtained. Study obtained in a Siemens sensation [address] Automatic Exposure Control was utilized. Total Dose length Product (DLP): 699.[address] Dose Index Volume (CTDIvol): 12 mGy COMPARISON: None FINDINGS: Lungs: Trace bilateral pleural effusion demonstrated.. Liver: Unremarkable Gallbladder/biliary system: No gallstones are identified. There is no evidence of intrahepatic or extrahepatic biliary ductal dilatation. Spleen: Unremarkable Pancreas: Unremarkable Kidneys/Bladder: There is no hydronephrosis or stones. There is a large cyst in the left kidney measuring about 8 cm in diameter. Bladder is unremarkable.. Adrenal glands: Unremarkable Aorta/IVC: Unremarkable Bowel: On the left side of abdomen, fluid-filled small bowel loops appear abnormal with distention, slight prominence of the wall. In addition some of the loops demonstrate fecal-like material which is a sign of stasis. The appendix is normal. There is a moderate amount of formed stool within the colon and rectum. There is no pneumatosis or free air. There is no free fluid. 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 There is suggestion of a left ovarian cyst with rim enhancement measuring about 2 cm.. Bones: Unremarkable IMPRESSION: Distended, fluid-filled loops of small bowel in the left side of abdomen. Doubt bowel obstruction. Findings could be due to localized enteritis or ileus. Please correlate clinically. Normal appendix 2 cm left ovarian cyst. Septate versus partial septate uterus The CT scanner at [facility] is accredited by the [employer] and the scans are performed using dose optimization techniques as appropriate to a performed exam including Automatic Exposure control.
[2019-07-23] MEDS ORDERED: MIRALAX17 G2 ORAL (11:51)
[2019-07-23 11:52] VITALS: BP 106/65
[2019-07-23 11:58] VITALS: BP 106/65
--- NOTE | 2019-07-23 12:00 | NUR ---
ER DISCHARGE NOTE: Patient is cleared to be discharged per ERMD, pt is aox4, on room air, with stable vital signs. pt was given dc and prescription instructions, pt was able to verbalize understanding, pt id band and iv site removed without complications. pt is able to ambulate with steady gait. pt took all belongings.
== END 2019-07-23 12:00 | disposition home or self-care (01) ==
LOC: EMR 09:29
DX: R10.30 Lower abdominal pain, unspecified (principal); N28.1 Cyst of kidney, acquired; N83.202 Unspecified ovarian cyst, left side; Z88.1 Allergy status to other antibiotic agents; Z88.5 Allergy status to narcotic agent; Z88.8 Allergy status to other drugs, medicaments and biological substances
CPT/HCPCS: 36415; 74177; 80053; 81003; 81025; 83690; 85025; J1885; J7030; Q9967; Z7502; 99284

== ENCOUNTER 2019-09-13 17:16 | Emergency (ER) | payer MEDICAID ==
[~2019-09-13] VITALS: Ht 172.7 cm; Wt 102.1 kg
[~2019-09-13 17:16] MED LIST changes: +MIRALAX17 G2 ORAL
--- NOTE | 2019-09-13 17:19 | NUR ---
ED Nurse Note: pt ambulated to ed d/t fever and generalized body weakness x 1 week. latest temp at tent triage: 99.1F. AAO x4 and ambulatory.
[2019-09-13 17:23] VITALS: BP 113/72
--- NOTE | 2019-09-13 18:16 | Emergency Room Report ---
History of Present Illness General Chief Complaint: Flu Like Symptoms Source: Patient Present Illness HPI 34-year-old female with history of fibromyalgia and COPD here complaining of 1 week of generalized weakness, body ache, and low-grade fever. Also complains of minor congestion however denies shortness of breath at this time. Complains of minor cough with phlegm production. Reports that she smokes tobacco on daily basis. Sitting comfortably, oxygenation is 94% which appears to be normal for her COPD status. Chest x-ray within normal limits. Patient appears to have low-grade fever of 99 F. Denies abdominal pain, nausea vomiting diarrhea. Has not taken medication for symptom relief at this time. Denies . Allergies: Coded Allergies: CEPHALEXIN (Verified Allergy, Unknown, 11/15/18) FLUPHENAZINE (Verified Allergy, Unknown, 11/18/17) HALOPERIDOL (Unverified Adverse Reaction, Intermediate, 11/18/17) COVID-19 Screening Contact w/high risk pt: No Recent Travel to affected area: No Experienced COVID-19 symptoms?: Yes COVID-19 symptoms experienced: Fever (T>100.4F or >38C) Patient History Past Medical History: see triage record Past Surgical History: none Pertinent Family History: none Last Menstrual Period: 07/28/19 Now: No Immunizations: UTD Reviewed Nursing Documentation: PMH: Agreed; PSxH: Agreed Nursing Documentation-PMH Hx Hypertension: No Hx Pacemaker: No Hx Asthma: No Hx COPD: No Hx Diabetes: No Hx Cancer: No Hx Gastrointestinal Problems: No Hx Dialysis: No Hx Neurological Problems: No Hx Cerebrovascular Accident: No Hx Seizures: No Review of Systems All Other Systems: negative except mentioned in HPI Physical Exam Vital Signs Date Time Temp Pulse Resp B/P (MAP) Pulse Ox O2 Delivery O2 Flow Rate FiO2 09/13/19 17:09 99.1 98 20 113/72 (86) 94 Room Air Sp02 EP Interpretation: reviewed, normal General Appearance: no apparent distress, alert, GCS 15, non-toxic Head: normocephalic, atraumatic Eyes: bilateral eye normal inspection, bilateral eye PERRL ENT: hearing grossly normal, normal pharynx, no angioedema, normal voice Neck: full range of motion, supple/symm/no masses Respiratory: chest non-tender, lungs clear, normal breath sounds, speaking full sentences Cardiovascular #1: regular rate, rhythm, no edema Gastrointestinal: normal bowel sounds, non tender, soft, non-distended, no guarding, no rebound Musculoskeletal: normal inspection Neurologic: alert, motor strength/tone normal, oriented x3, sensory intact, responsive, speech normal Psychiatric: judgement/insight normal, memory normal, mood/affect normal, no suicidal/homicidal ideation Skin: no rash Lymphatic: normal inspection Medical Decision Making PA Attestation All my diagnosis and treatment plans were reviewed ad discussed with my supervising physician Dr. Gómez Diagnostic Impression: Primary Impression: Upper respiratory infection ER Course 34-year-old female with history of fibromyalgia and COPD here complaining of 1 week of generalized weakness, body ache, and low-grade fever. Also complains of minor congestion however denies shortness of breath at this time. Complains of minor cough with phlegm production. Reports that she smokes tobacco on daily basis. Sitting comfortably, oxygenation is 94% which appears to be normal for her COPD status. Chest x-ray within normal limits. Patient appears to have low-grade fever of 99 F. Denies abdominal pain, nausea vomiting diarrhea. Has not taken medication for symptom relief at this time. Denies . Ddx considered but are not limited to: Coronavirus, strep pharyngitis, URI, tonsillitis, peritonsillar abscess, influneza Vital signs: are WNL, pt. is afebrile H&PE are most consistent with: Upper respiratory infection ORDERS: Chest x-ray, guaifenesin DM, albuterol, azithromycin, Tylenol ED INTERVENTIONS: None required at this time. DISCHARGE: At this time pt. is stable for d/c to home. Will provide printed patient care instructions, and any necessary prescriptions. Care plan and follow up instructions have been discussed with the patient prior to discharge. Gave patient information to across the street to be tested for COVID-19, . At this time patient does not require hospitalization as oxygenation within normal limits for her COPD status and appears to have low-grade fever, and no respiratory distress. Take medication as directed, follow-up with your primary doctor, you need to stay home for self quarantine due to Covid 19 precautions for 14 days Chest X-Ray Diagnostic Results Chest X-Ray Diagnostic Results : Chest X-Ray Ordered: Yes # of Views/Limited/Complete: 1 View Indication: Other - cough EP Interpretation: Yes DIDI Xray: Interpretation reviewed, by supervising MD, and agrees with findings. Interpretation: no consolidation, no effusion, no pneumothorax Impression: No acute disease Electronically Signed by: Stew TOLBERT Scribdanna Text FINDINGS: Lungs: Unremarkable. No consolidation. Pleural space: Unremarkable. No pneumothorax. Heart: Unremarkable. No cardiomegaly. Mediastinum: Unremarkable. Bones/joints: Unremarkable. IMPRESSION: 1. No acute cardiopulmonary disease. 2. If there is continued concern recommend frontal and lateral chest radiographs or CT. Last Vital Signs Date Time Temp Pulse Resp B/P (MAP) Pulse Ox O2 Delivery O2 Flow Rate FiO2 09/13/19 17:23 99.1 98 20 113/72 94 Room Air Disposition: HOME, SELF-CARE Condition: Stable Scripts Guaifenesin/Dextromethorphan* (Guaifenesin Dm Syrup*) 5 Ml Syrup 10 ML ORAL Q8H PRN for For Cough, #118 ML Prov: Stew Rosado 09/13/19 Albuterol Sulfate* (PROAIR HFA*) 8.5 Gm Hfa.aer.ad 2 PUFFS INH Q6H, #8.5 GM 0 Refills Prov: Stew Rosado 09/13/19 Acetaminophen* (TYLENOL EXTRA STRENGTH*) 500 Mg Tablet 500 MG ORAL Q8H PRN for Prn Headache/Temp > 101, #30 TAB 0 Refills Prov: Stew Rosado 09/13/19 Azithromycin* (ZITHROMAX*) 250 Mg Tablet 250 MG ORAL DAILY, #6 TAB 0 Refills Take two tables once daily for 1 day, then one tablet once daily for 4 days. Prov: Stew Rosado 09/13/19 Patient Instructions: Upper Respiratory Infection, Adult, [id number] Additional Instructions: Take medication as directed, follow-up primary doctor, if worsening symptoms return to the emergency room. Take medication as directed, follow-up with your primary doctor, you need to stay home for self quarantine due to Covid 19 precautions for 14 days Stew Rosado Sep 13, 2019 18:16
[2019-09-13] MEDS ORDERED: GUAIFENESIN DM118 M1 ORAL (18:20)
[2019-09-13] MEDS ORDERED: ZITHROMAX250 MG ORAL (18:20)
[2019-09-13] MEDS ORDERED: PROAIR HFA8.5 GM INH (18:20)
[2019-09-13] MEDS ORDERED: TYLENOL EXTRA500 MG ORAL (18:20)
[2019-09-13 18:33] VITALS: BP 125/70
--- NOTE | 2019-09-13 18:33 | NUR ---
ER DISCHARGE NOTE: Patient is cleared to be discharged per PA, pt is aox4, on room air, with stable vital signs. pt was given dc and prescription instructions, pt was able to verbalize understanding, pt id band removed without complications. pt is able to ambulate with steady gait. pt took all belongings.
== END 2019-09-13 18:33 | disposition home or self-care (01) ==
LOC: EMR 17:39
DX: J06.9 Acute upper respiratory infection, unspecified (principal); J44.9 Chronic obstructive pulmonary disease, unspecified; R50.9 Fever, unspecified; F17.200 Nicotine dependence, unspecified, uncomplicated; Z88.8 Allergy status to other drugs, medicaments and biological substances
CPT/HCPCS: 71045; Z7502; 99283

== ENCOUNTER 2019-11-29 14:19 | Emergency (ER) | payer MEDICAID ==
[~2019-11-29] VITALS: Ht 172.7 cm; Wt 90.7 kg
[~2019-11-29 14:19] MED LIST changes: +CORTIZONE-1028 G2 TP; +GUAIFENESIN DM118 M1 ORAL; +PROAIR HFA8.5 GM INH; +TYLENOL EXTRA500 MG ORAL
[2019-11-29 14:45] VITALS: BP 114/75
--- NOTE | 2019-11-29 15:01 | Emergency Room Report ---
History of Present Illness General Chief Complaint: Sore Throat Source: Patient (Stew Rosado) Present Illness HPI 34-year-old female with history of depression anxiety here complaining of 2 days of generalized body ache, Sore Throat, Anterior Cervical Lymphadenopathy, and Few Bouts of Nonbloody Diarrhea. Denies Any Fever and Chills, Cough or Congestion, Shortness of Breath. Denies Coming Contact with Any Person Who Is Positive for COVID. Has Been Taking Advil with Minimal Relief. Patient Also Takes Gabapentin and Few Psychiatric Medications. Resting Comfortably with Stable Vital Signs. Denies . O2 Sat within Normal Limits. Patient Is Afebrile. Denies Loss of Taste and Smell. (Stew Rosado) Allergies: Coded Allergies: CEPHALEXIN (Verified Allergy, Unknown, 11/15/18) FLUPHENAZINE (Verified Allergy, Unknown, 11/18/17) HALOPERIDOL (Unverified Adverse Reaction, Intermediate, 11/18/17) COVID-19 Screening Contact w/high risk pt: No Recent Travel to affected area: No Experienced COVID-19 symptoms?: Yes COVID-19 symptoms experienced: Fever (T>100.4F or >38C) COVID-19 Testing performed PHYSICIST CRYOGENICS: No (Stew Rosado) Patient History Past Medical History: see triage record Past Surgical History: none Pertinent Family History: none Last Menstrual Period: 11/19/19 Now: No Immunizations: UTD Reviewed Nursing Documentation: PMH: Agreed; PSxH: Agreed (Stew Rosado) Nursing Documentation-PMH Hx Hypertension: No Hx Pacemaker: No Hx Asthma: No Hx COPD: No Hx Diabetes: No Hx Cancer: No Hx Gastrointestinal Problems: No Hx Dialysis: No Hx Neurological Problems: No Hx Cerebrovascular Accident: No Hx Seizures: No (Stew Rosado) Review of Systems All Other Systems: negative except mentioned in HPI (Stew Rosado) Physical Exam Vital Signs Date Time Temp Pulse Resp B/P (MAP) Pulse Ox O2 Delivery O2 Flow Rate FiO2 11/29/19 14:27 99.3 97 18 111/73 (86) 97 Room Air Sp02 EP Interpretation: reviewed, normal General Appearance: no apparent distress, alert, GCS 15, non-toxic Head: normocephalic, atraumatic Eyes: bilateral eye normal inspection, bilateral eye PERRL ENT: tonsillar swelling, pharyngeal erythema Neck: full range of motion, supple/symm/no masses Respiratory: lungs clear, no rhonchi, no wheezing Cardiovascular #1: regular rate, rhythm, no edema Gastrointestinal: normal bowel sounds, non tender, soft, non-distended, no guarding, no rebound Genitourinary: no CVA tenderness Musculoskeletal: back normal Neurologic: alert, motor strength/tone normal, oriented x3, sensory intact, responsive, speech normal Psychiatric: judgement/insight normal, memory normal, mood/affect normal, no suicidal/homicidal ideation Skin: no rash Lymphatic: no adenopathy (Stew Rosado) Medical Decision Making PA Attestation All diagnoses and treatment plans were reviewed and discussed with my supervising physician Dr. Julio (Stew Rosado) Diagnostic Impression: Primary Impression: Suspected 2019 novel coronavirus infection Additional Impression: Pharyngitis ER Course 34-year-old female with history of depression anxiety here complaining of 2 days of generalized body ache, Sore Throat, Anterior Cervical Lymphadenopathy, and Few Bouts of Nonbloody Diarrhea. Denies Any Fever and Chills, Cough or Congestion, Shortness of Breath. Denies Coming Contact with Any Person Who Is Positive for COVID. Has Been Taking Advil with Minimal Relief. Patient Also Takes Gabapentin and Few Psychiatric Medications. Resting Comfortably with Stable Vital Signs. Denies . O2 Sat within Normal Limits. Patient Is Afebrile. Denies Loss of Taste and Smell. Ddx considered but are not limited to: Coronavirus, strep pharyngitis, URI, tonsillitis, peritonsillar abscess, influneza Vital signs: are WNL, pt. is afebrile H&PE are most consistent with: Suspected coronavirus, pharyngitis ORDERS: Chest x-ray, azithromycin, Tylenol ED INTERVENTIONS: None required at this time. DISCHARGE: At this time pt. is stable for d/c to home. Will provide printed patient care instructions, and any necessary prescriptions. Care plan and follow up instructions have been discussed with the patient prior to discharge. Gave contact information to patient is at [facility]. Patient to stay 14 days. If worsening symptoms return to the emergency room also patient has a strep pharyngitis. (Stew Rosado) Chest X-Ray Diagnostic Results Chest X-Ray Diagnostic Results : Chest X-Ray Ordered: Yes # of Views/Limited/Complete: 1 View Indication: Other EP Interpretation: Yes PA Xray: Interpretation reviewed, by supervising MD, and agrees with findings. Interpretation: no consolidation, no effusion, no pneumothorax, no acute cardiopulmonary disease Impression: No acute disease Electronically Signed by: Stew Grajeda PA-C (Stew Rosado) Chest X-Ray Diagnostic Results : Electronically Signed by: Titus Alonzo documentation of Xray reviewed by me and is accurate, Juan Julio MD (Juan Julio MD) Last Vital Signs Date Time Temp Pulse Resp B/P (MAP) Pulse Ox O2 Delivery O2 Flow Rate FiO2 11/29/19 14:27 99.3 97 18 111/73 (86) 97 Room Air (Stew Rosado) Disposition: HOME, SELF-CARE Condition: Stable Scripts Acetaminophen* (TYLENOL EXTRA STRENGTH*) 500 Mg Tablet 500 MG ORAL Q8H PRN for Prn Headache/Temp > 101, #30 TAB 0 Refills Prov: Stew Rosado 11/29/19 Azithromycin* (ZITHROMAX*) 250 Mg Tablet 250 MG ORAL DAILY, #6 TAB 0 Refills Take two tables once daily for 1 day, then one tablet once daily for 4 days. Prov: Stew Rosado 11/29/19 Patient Instructions: Pharyngitis, [id number] Additional Instructions: Take medication as directed, follow with your primary care provider, self isolate for 14 days, if worsening symptoms return to the emergency room Stew Rosado Nov 29, 2019 15:01 Juan Julio MD Dec 01, 2019 20:28
[2019-11-29] MEDS ORDERED: ZITHROMAX250 MG ORAL (15:03)
[2019-11-29] MEDS ORDERED: TYLENOL EXTRA500 MG ORAL (15:03)
[2019-11-29 15:26] VITALS: BP 117/79
--- NOTE | 2019-11-29 15:32 | Diagnostic Imaging Report ---
EXAM: XR Chest, 1 View CLINICAL HISTORY: SOB TECHNIQUE: Frontal view of the chest. COMPARISON: Chest radiograph on 09/13/2019 FINDINGS: Hardware: None. Lungs/pleura: Normal. No focal consolidation. No pleural effusion or pneumothorax. Heart/mediastinum: Normal. No cardiomegaly. Soft tissues: Unremarkable. Bones: No acute fracture. Upper abdomen: Normal. IMPRESSION: No acute disease identified.
== END 2019-11-29 15:26 | disposition home or self-care (01) ==
LOC: EMR 14:40
DX: J02.9 Acute pharyngitis, unspecified (principal); Z88.8 Allergy status to other drugs, medicaments and biological substances; R50.9 Fever, unspecified
CPT/HCPCS: 71045; Z7502; 99283